=== PATIENT | female | born 1990 | race Caucasian/White ===

== ENCOUNTER → 2019-06-26 11:46 | Outpatient (CLI) | payer OTHER ==
[~2019-06-26] VITALS: Ht 160 cm; Wt 89.8 kg
[2019-06-26 10:37] VITALS: BP 131/96
[2019-06-26 10:52] LABS: URINE BILIRUBIN NEGATIVE (Negative); URINE BLOOD NEGATIVE (Negative); URINE CLARITY CLEAR; URINE COLOR YELLOW; URINE GLUCOSE-RANDOM* NEGATIVE (Negative); URINE KETONES NEGATIVE (Negative); URINE LEUKOCYTES-REFLEX NEGATIVE (Negative); URINE NITRITE-REFLEX NEGATIVE (Negative); URINE PROTEIN (DIPSTICK) NEGATIVE (Negative); URINE SPECIFIC GRAVITY 1.025 (1.005-1.035); URINE UROBILINOGEN 0.2 E.U./dl (0.2-1.0)
== END ==
LOC: ER 10:32 → EDSTATUS 11:39 → RAD 11:46
PROVIDERS: Emergency Medicine
DX: N20.1 Calculus of ureter (principal)